=== PATIENT | female | born 1995 | race Caucasian/White ===

== ENCOUNTER 2016-10-23 20:26 | Emergency (ER) | payer BC ==
[2016-10-23 20:42] VITALS: BP 118/73
--- NOTE | 2016-10-23 20:49 | UC ---
Respiratory Complaint HPI - HPI Summary HPI Summary: 20 YEAR OLD FEMALE PRESENTS WITH COMPLAINS OF COUGH AND SORE THROAT. - History of Current Complaint Chief Complaint: UCRespiratory Stated Complaint: cough Time Seen by Provider: 10/23/16 20:48 Hx Obtained From: Patient Hx Last Menstrual Period: nexplanon - does not get Onset/Duration: Lasting Hours Timing: Constant Severity Initially: Moderate Severity Currently: Moderate Pain Scale Used: 0-10 Numeric - 5 - Allergies/Home Medications Allergies/Adverse Reactions: Allergies Allergy/AdvReac Type Severity Reaction Status Date / Time No Known Allergies Allergy Verified 10/23/16 20:42 PMH/Surg Hx/FS Hx/Imm Hx - Surgical History Surgical History: None - Family History Known Family History: Positive: None - Social History Alcohol Use: Weekly Substance Use Type: None Smoking Status (MU): Never Smoked Tobacco Review of Systems Constitutional: Negative Skin: Negative Eyes: Negative ENT: Nasal Discharge, Sinus Congestion, Sinus Pain/Tenderness Respiratory: Cough Cardiovascular: Negative Gastrointestinal: Negative Genitourinary: Negative Motor: Negative Neurovascular: Negative Musculoskeletal: Negative Neurological: Negative Psychological: Negative All Other Systems Reviewed And Are Negative: Yes Physical Exam Triage Information Reviewed: Yes Vital Signs: Initial Vital Signs Temp 37.6 C 10/23/16 20:39 Pulse 69 10/23/16 20:39 Resp 16 10/23/16 20:39 BP 118/73 10/23/16 20:39 Pulse Ox 100 10/23/16 20:39 Vital Signs Reviewed: Yes Eye Exam: Normal ENT: Positive: Pharyngeal erythema, Nasal congestion, Nasal drainage Dental Exam: Normal Neck exam: Normal Neck: Positive: 1 Respiratory: Positive: Wheezing Cardiovascular Exam: Normal Abdominal Exam: Normal Musculoskeletal Exam: Normal Neurological Exam: Normal Psychological Exam: Normal Skin Exam: Normal UC Diagnostic Evaluation - Laboratory O2 Sat by Pulse Oximetry: 100 Respiratory Course/Dx - Differential Dx/Diagnosis Provider Diagnoses: COUGH. ALLERGIC RHINNITIS Discharge - Discharge Plan Condition: Stable Disposition: HOME Prescriptions: Amoxicillin PO (*) [Amoxicillin 875 MG (*)] 875 mg PO BID #14 tab LoraTADine TAB(NF) [Claritin 10 MG TAB(NF)] 10 mg PO DAILY #30 tab guaiFENesin/CODIEN 100MG-10MG* [Robitussin AC 100Mg-10Mg*] 5 ml PO Q8H PRN #120 udc MDD 15 ML PRN Reason: Cough Patient Education Materials: Cold Symptoms (ED), Bronchospasm (ED), Acute Cough (ED) Referrals: [facility] [Primary Care Provider] -
[2016-10-23] MEDS ORDERED: Amoxicillin PO (*) 875 MG TAB PO ONE (20:55)
[2016-10-23] MEDS ORDERED: guaiFENesin/CODIEN 100MG-10MG* 5 ML UDC PO ONE (20:55)
[2016-10-23] MEDS ORDERED: LoraTADine TAB(NF) 10 MG TAB (AUTOSUB to CETIRIZINE) PO ONE (20:56)
== END 2016-10-23 21:08 | disposition home or self-care (01) ==
LOC: UCEAST 20:26
DX: R05 Cough (principal); J30.9 Allergic rhinitis, unspecified
CPT/HCPCS: 99202; A9270-GY; G0463